=== PATIENT | female | born 1950 | race Two or more races ===

== ENCOUNTER 2019-03-10 16:03 | Inpatient (IN) | payer OTHER ==
[~2019-03-10] VITALS: Ht 160 cm; Wt 59.0 kg
[2019-03-10] MEDS ORDERED: LOSARTAN POTAS100 MG (16:37)
[2019-03-10] MEDS ORDERED: CRESTOR10 MG (16:37)
== END 2019-03-14 17:23 | disposition home or self-care (01) | DRG 387 ==
LOC: ER 16:03 → MEDJ 03-11 09:28
PROVIDERS: ADMIT Internal Medicine
DX: K51.511 Left sided colitis with rectal bleeding (principal); E86.0 Dehydration; E87.8 Other disorders of electrolyte and fluid balance, not elsewhere classified

== ENCOUNTER 2021-07-23 10:07 | Emergency (ER) | payer OTHER ==
[~2021-07-23] VITALS: Ht 160 cm; Wt 59.0 kg
[~2021-07-23 10:07] MED LIST: CRESTOR10 MG; LOSARTAN POTAS100 MG
[2021-07-23] MEDS ORDERED: METFORMIN HCL500 M3 PO (10:14)
[2021-07-23] MEDS ORDERED: TRILIPIX135 MG (10:14)
[2021-07-23] MEDS ORDERED: NORVASC5 MG PO (10:15)
== END 2021-07-23 11:01 | disposition home or self-care (01) ==
LOC: ER 10:07
DX: L08.9 Local infection of the skin and subcutaneous tissue, unspecified (principal); Z88.2 Allergy status to sulfonamides; Z91.041 Radiographic dye allergy status; E78.00 Pure hypercholesterolemia, unspecified; I10 Essential (primary) hypertension; E11.9 Type 2 diabetes mellitus without complications; Z79.4 Long term (current) use of insulin